=== PATIENT | female | born 1965 | race Caucasian/White ===

== ENCOUNTER → 2020-02-23 | Outpatient (CLI) | payer MEDICAID | LOC: CARD 09:11 | PROVIDERS: ATTEND Internal Medicine Cardiovascular Disease | DX: R00.2 Palpitations (principal); R06.02 Shortness of breath; R07.89 Other chest pain; Z72.0 Tobacco use | CPT/HCPCS: 93225; 93226; 93306 ==

== ENCOUNTER → 2020-02-24 | Outpatient (CLI) | payer MEDICAID ==
[~2020-02-24] VITALS: Ht 165 cm; Wt 73.0 kg
[~2020-02-24] MED LIST: CATHETER FLUSH 10 ML SYR IV PRN; REGADENOSON 0.4 MG/5 ML SYR (LEXISCAN) IV ONE
[2020-02-24 11:31] VITALS: BP 162/92
--- NOTE | 2020-02-24 14:50 | STRESS TEST ---
DATE OF SERVICE: 02/24/2020 RESTING AND POST REGADENOSON TECHNETIUM-99M TETROFOSMIN SPECT IMAGING ORDERING PHYSICIAN: Dr. Castillo. PRIMARY PHYSICIAN: Lona Bowers APRN CLINICAL DIAGNOSES: Palpitations. Baseline images were carried out after injection of 10.1 mCi of technetium-99m Tetrofosmin. This was followed by 0.4 mg regadenoson and 33 mCi of technetium-99m Tetrofosmin for stress imaging. The electrocardiogram showed sinus rhythm at baseline. There was subtle nonspecific ST abnormality. The electrocardiogram did not change significantly with regadenoson infusion. The patient tolerated the procedure well. Review of images at rest and following stress does not indicate any significant perfusion defects consistent with myocardial ischemia or infarction. Gated images show normal global left ventricular systolic function with normal regional wall motion. Left ventricular ejection fraction is calculated to be 73%. Left ventricular end diastolic volume is 48 mL. TID is absent (1.14). CONCLUSIONS: 1. No evidence of any significant myocardial ischemia or infarction on this study. 2. Normal regional wall motion. 3. Normal global left ventricular systolic function with a calculated ejection fraction of 73%. Job ID: [id number] DocumentID: [id number] Dictated Date: 02/24/2020 13:32:19 Change Person Date: 02/24/2020 14:50:12 Dictated By: KELLY CASTILLO MD, MA, FACP, FACC,
== END ==
LOC: CARD 10:27
PROVIDERS: ATTEND Internal Medicine Cardiovascular Disease
DX: R00.2 Palpitations (principal); R06.02 Shortness of breath; R07.89 Other chest pain; Z72.0 Tobacco use
CPT/HCPCS: 78452; 93017; A9502